=== PATIENT | male | born 1955 | race Hispanic/Latino ===

== ENCOUNTER 2019-09-21 11:46 | Emergency (ER) | payer OTHER, BC ==
--- OUTSIDE RECORDS SUMMARY | 2019-09-21 11:47 | XMS REPORT ---
:1955 Author Organization eClinicalWorks Care Team Providers Name Role Phone Gary Bone Provider Role Unavailable Allergies, Adverse Reactions, Alerts Substance Reaction Event Type N.K.D.A. Info Not Available Non Drug Allergy Problems Problem Type Condition Code Onset Dates Condition Status Assessment Pain, joint, knee, right M25.561 Active Assessment Patellar tendinitis of right knee M76.51 Active Assessment Iliotibial band syndrome of right M76.31 Active side Medications Medication Code Code Instructions Start End Status Dosage System Date Date Omeprazole [facility] 59660072617 20 MG Oral Active TAKE 1 CAPSULE BY MOUTH DAILY Losartan [facility] 85800470312 50-12.5 MG Oral Active TAKE 1 Potassium-HCTZ TABLET BY MOUTH EVERY DAY - [facility] 99740767963 81 MG Orally Active 1 tablet Once a day Simvastatin [facility] 02725608475 20 MG Orally Oct 30, Active 1 tablet Once a day 2018 in the evening Clopidogrel [facility] 57081501734 75 MG Orally Oct 30, Active 1 tablet Bisulfate Once a day 2018 Results No Known Results Summary Purpose eClinicalWorks Submission
[2019-09-21] MEDS ORDERED: AMLODIPINE 5 MG TAB ONE (12:24)
--- NOTE | 2019-09-21 13:23 | EDPHYS ---
Physician Documentation [facility] Name: Carlos Johnson Age: 64 yrs Sex: Male : 1955 Arrival Date: 09/21/2019 Time: 11:52 Bed 25 Private MD: ED Physician Krzysztof Larson HPI: 09/21 13:16 This 64 yrs old Male presents to ER via Ambulatory with complaints of High kb Blood Pressure. 13:16 The patient has elevated blood pressure and discovered this at home, with a home kb device. Onset: The symptoms/episode began/occurred 1 month(s) ago. Associated signs and symptoms: The patient has no apparent associated signs or symptoms. Severity of symptoms: At its worst the blood pressure was moderate, 200 mm Hg, in the emergency department the blood pressure is improved. The patient has experienced similar episodes in the past. The patient has been recently seen by a physician: the patient's primary care provider, Dr. Fields yesterday, with similar presenting complaints. Pt reports his blood pressure has been high for about a month. Was seen by PCP yesterday and they switched his medication to amlodipine 2.5mg. States is still running high so he called Dr Levy who told him to take 3 more pills total 10mg and to start taking 10mg daily. Pt and spouse concerned that that is too much medications so he only took 1 more and came to make sure that 10mg was ok. Pt denies headache, chest pain or any other symptoms. . Historical: - Allergies: 12:07 No Known Drug Allergies; hb - Home Meds: 12:07 amlodipine 2.5 mg tab 1 tab once daily [Active]; hb - PMHx: 12:07 Hypertension; hb - PSHx: 12:07 Heart stents; hb - Immunization history:: Adult Immunizations up to date. - Social history:: Smoking status: Patient/guardian denies using tobacco. - Ebola Screening: : No symptoms or risks identified at this time. ROS: 13:15 Constitutional: Negative for fever, chills, and weight loss, Eyes: Negative for injury, kb pain, redness, and discharge, ENT: Negative for injury, pain, and discharge, Neck: Negative for injury, pain, and swelling, Cardiovascular: Negative for chest pain, palpitations, and edema, Respiratory: Negative for shortness of breath, cough, wheezing, and pleuritic chest pain, Abdomen/GI: Negative for abdominal pain, nausea, vomiting, diarrhea, and constipation, Back: Negative for injury and pain, MS/Extremity: Negative for injury and deformity, Skin: Negative for injury, rash, and discoloration, Neuro: Negative for headache, weakness, numbness, tingling, and seizure. Exam: 13:15 Constitutional: This is a well developed, well nourished patient who is awake, alert, kb and in no acute distress. Head/Face: Normocephalic, atraumatic. Eyes: Pupils equal round and reactive to light, extra-ocular motions intact. Lids and lashes normal. Conjunctiva and sclera are non-icteric and not injected. Cornea within normal limits. Periorbital areas with no swelling, redness, or edema. ENT: Nares patent. No nasal discharge, no septal abnormalities noted. Tympanic membranes are normal and external auditory canals are clear. Oropharynx with no redness, swelling, or masses, exudates, or evidence of obstruction, uvula midline. Mucous membranes moist. Neck: Trachea midline, no thyromegaly or masses palpated, and no cervical lymphadenopathy. Supple, full range of motion without nuchal rigidity, or vertebral point tenderness. No Meningismus. Chest/axilla: Normal chest wall appearance and motion. Nontender with no deformity. No lesions are appreciated. Cardiovascular: Regular rate and rhythm with a normal S1 and S2. No gallops, murmurs, or rubs. Normal PMI, no JVD. No pulse deficits. Respiratory: Lungs have equal breath sounds bilaterally, clear to auscultation and percussion. No rales, rhonchi or wheezes noted. No increased work of breathing, no retractions or nasal flaring. Abdomen/GI: Soft, non-tender, with normal bowel sounds. No distension or tympany. No guarding or rebound. No evidence of tenderness throughout. Back: No spinal tenderness. No costovertebral tenderness. Full range of motion. Skin: Warm, dry with normal turgor. Normal color with no rashes, no lesions, and no evidence of cellulitis. MS/ Extremity: Pulses equal, no cyanosis. Neurovascular intact. Full, normal range of motion. Neuro: Awake and alert, GCS 15, oriented to person, place, time, and situation. Cranial nerves II-XII grossly intact. Motor strength 5/5 in all extremities. Sensory grossly intact. Cerebellar exam normal. Normal gait. Vital Signs: 12:07 BP 189 / 90; Pulse 76; Resp 16; Temp 98.2; Pulse Ox 100% on R/A; Weight 81.65 kg; hb Height 5 ft. 6 in. (167.64 cm); Pain 0/10; 12:33 BP 150 / 92; Pulse 70; Resp 18; Pulse Ox 95% on R/A; Pain 0/10; mg2 12:43 BP 140 / 85; mg2 13:36 BP 166 / 95; Pulse 71; Resp 18; Temp 98.1(O); Pulse Ox 100% on R/A; mg2 12:07 Body Mass Index 29.05 (81.65 kg, 167.64 cm) hb MDM: 12:11 Patient medically screened. kb 13:14 Data reviewed: vital signs, nurses notes. Data interpreted: Pulse oximetry: on room air kb is 95 %. Interpretation: normal. Counseling: I had a detailed discussion with the patient and/or guardian regarding: the historical points, exam findings, and any diagnostic results supporting the discharge/admit diagnosis, lab results, the need for outpatient follow up, a capital markets specialist, a family practitioner, to return to the emergency department if symptoms worsen or persist or if there are any questions or concerns that arise at home. ED course: Reviewed labs that were completed yesterday, all wnl. EKG normal. Pt asymptomatic. BP decreased. Will send home to continue to log BP readings and follow up with Ruthie. 09/21 12:18 Order name: EKG; Complete Time: 12:19 kb 09/21 12:18 Order name: EKG - Nurse/Tech; Complete Time: 12:43 kb Administered Medications: 12:31 Drug: amLODIPine 5 mg Route: PO; mg2 13:36 Follow up: Response: No adverse reaction; Blood pressure is lowered mg2 Disposition: 09/22 07:15 Co-signature as Attending Physician, Krzysztof Larson MD I agree with the assessment and kdr plan of care. Chart complete. Disposition: 09/21/19 13:22 Discharged to Home. Impression: Essential (primary) hypertension. - Condition is Stable. - Discharge Instructions: Hypertension, [id number]. - Medication Reconciliation Form, Thank You Letter, Antibiotic Education, Prescription Opioid Use form. - Follow up: Emergency Department; When: As needed; Reason: Worsening of condition. Follow up: Private Physician; When: 2 - 3 days; Reason: Recheck today's complaints, Continuance of care, Re-evaluation by your physician. Signatures: Maureen Cai, MARKETING CLERK-C MARKETING CLERK-Ckb Krzysztof Larson MD MD [facility] Trinity Aponte RN RN Wilmar Lin RN RN mg2 Corrections: (The following items were deleted from the chart) 09/21 13:37 13:22 09/21/2019 13:22 Discharged to Home. Impression: Essential (primary) mg2 hypertension. Condition is Stable. Forms are Medication Reconciliation Form, Thank You Letter, Antibiotic Education, Prescription Opioid Use. Follow up: Emergency Department; When: As needed; Reason: Worsening of condition. Follow up: Private Physician; When: 2 - 3 days; Reason: Recheck today's complaints, Continuance of care, Re-evaluation by your physician. kb
--- NOTE | 2019-09-21 13:23 | EKG ---
Test Date: 2019-09-21 Test Time: 12:40:21 Car Repairman: MEASUREMENT RESULTS: Intervals: Rate: 62 IA: 166 QRSD: 82 QT: 400 QTc: 406 [place]: P: 30 IA: 166 QRS: 62 T: 24 INTERPRETIVE STATEMENTS: Normal sinus rhythm Normal ECG Compared to ECG 10/21/2014 23:39:38 Sinus arrhythmia no longer present Myocardial infarct finding no longer present Electronically Signed On 09-21-19 13:22:49 SPECIAL COLLECTIONS LIBRARIAN by Keanu Levy
--- NOTE | 2019-09-21 13:23 | ER ---
Nurse's Notes [facility] Name: Carlos Johnson Age: 64 yrs Sex: Male : 1955 Arrival Date: 09/21/2019 Time: 11:52 Bed 25 Private MD: Diagnosis: Essential (primary) hypertension Presentation: 09/21 12:05 Presenting complaint: Patient states: "My blood pressure was 200 yesterday, Dr. Fields hb told me to come to the ER". Denies pain/cough/SOB/fever. Transition of care: patient was not received from another setting of care. Onset of symptoms was September 21, 2019. Risk Assessment: Do you want to hurt yourself or someone else? Patient reports no desire to harm self or others. Initial Sepsis Screen: Does the patient meet any 2 criteria? No. Patient's initial sepsis screen is negative. Does the patient have a suspected source of infection? No. Patient's initial sepsis screen is negative. Care prior to arrival: None. 12:05 Method Of Arrival: Ambulatory hb 12:05 Acuity: MICHELLE 3 hb Historical: - Allergies: 12:07 No Known Drug Allergies; hb - Home Meds: 12:07 amlodipine 2.5 mg tab 1 tab once daily [Active]; hb - PMHx: 12:07 Hypertension; hb - PSHx: 12:07 Heart stents; hb - Immunization history:: Adult Immunizations up to date. - Social history:: Smoking status: Patient/guardian denies using tobacco. - Ebola Screening: : No symptoms or risks identified at this time. Screenin:32 Abuse screen: Denies threats or abuse. Denies injuries from another. Nutritional mg2 screening: No deficits noted. Tuberculosis screening: No symptoms or risk factors identified. Fall Risk None identified. Assessment: 12:31 General: Appears in no apparent distress. comfortable, Behavior is calm, cooperative. mg2 Pain: Denies pain. Neuro: Level of Consciousness is awake, alert, obeys commands, Oriented to person, place, time, situation. Neuro:. Cardiovascular: Capillary refill < 3 seconds Patient's skin is warm and dry. Respiratory: Airway is patent Respiratory effort is even, unlabored, Respiratory pattern is regular, symmetrical. GI: No signs and/or symptoms were reported involving the gastrointestinal system. : No signs and/or symptoms were reported regarding the genitourinary system. EENT: No signs and/or symptoms were reported regarding the EENT system. Derm: Skin is intact, is healthy with good turgor, Skin is pink, warm \\T\\ dry. normal. Musculoskeletal: Circulation, motion, and sensation intact. Capillary refill < 3 seconds. 13:36 Reassessment: Patient appears in no apparent distress at this time. mg2 Vital Signs: 12:07 BP 189 / 90; Pulse 76; Resp 16; Temp 98.2; Pulse Ox 100% on R/A; Weight 81.65 kg; hb Height 5 ft. 6 in. (167.64 cm); Pain 0/10; 12:33 BP 150 / 92; Pulse 70; Resp 18; Pulse Ox 95% on R/A; Pain 0/10; mg2 12:43 BP 140 / 85; mg2 13:36 BP 166 / 95; Pulse 71; Resp 18; Temp 98.1(O); Pulse Ox 100% on R/A; mg2 12:07 Body Mass Index 29.05 (81.65 kg, 167.64 cm) hb ED Course: 11:52 Patient arrived in ED. mr 12:06 Triage completed. hb 12:07 Arm band placed on. hb 12:10 Wilmar Lin, VIRGILIO is Primary Nurse. mg2 12:10 Maureen Cai FNP-C [facility]. kb 12:10 Krzysztof Larson MD is Attending Physician. kb 12:32 No provider procedures requiring assistance completed. Patient did not have IV access mg2 during this emergency room visit. 12:33 Patient has correct armband on for positive identification. Pulse ox on. NIBP on. Door mg2 closed. 12:44 EKG done, by ED staff, reviewed by Maureen PALACIOS. at1 Administered Medications: 12:31 Drug: amLODIPine 5 mg Route: PO; mg2 13:36 Follow up: Response: No adverse reaction; Blood pressure is lowered mg2 Outcome: 13:22 Discharge ordered by . kb 13:37 Discharged to home ambulatory, with family. mg2 13:37 Condition: stable 13:37 Discharge instructions given to patient, family, Instructed on discharge instructions, follow up and referral plans. Demonstrated understanding of instructions, follow-up care. 13:37 Patient left the ED. mg2 Signatures: Maureen Cai FNP-C CREATIVE TECHNOLOGIST-Ckb Brenna Stafford mr Brian, Kait, platform worker EKG Tat1 Trinity Aponte, RN RN hb Wilmar Lin, RN RN mg2
[2019-09-21 13:46] VITALS: BP 166/95; TEMP 98.1; O2SAT 100
== END 2019-09-21 13:37 | disposition home or self-care (01) ==
LOC: ER 11:46
DX: I10 Essential (primary) hypertension (principal); Z95.818 Presence of other cardiac implants and grafts
CPT/HCPCS: 93005; 99284

== ENCOUNTER 2023-06-07 13:59 | Emergency (ER) | payer OTHER, BC ==
--- OUTSIDE RECORDS SUMMARY | 2023-06-07 15:00 | XMS REPORT | Continuity of Care Document ---
:1955 Author Organization [facility] t Address [address] [facility] [address] [place] [address] Care Team Providers Name Role Phone Lashaun Bardales MD Primary Care Physician [phone] RONALD ECHAVARRIA Attending Clinician Unavailable LILIA SHINE Attending Clinician Unavailable LAB90 Attending Clinician Unavailable MEGGAN GRAY Attending Clinician Unavailable LASHAUN BARDALES Attending Clinician Unavailable Suzette Contreras NP Attending Clinician GAYATHRI SAINI Attending Clinician Unavailable Kevyn Henderson MD Attending Clinician Lilia Shine DO Attending Clinician Serge Fields Admitting Clinician Unavailable Payers Payer Name Policy Type Policy Number Effective Date Expiration Date S tay AETNA 2 [id number] 2018 00:00:00 BCBS 2 [id number] 2021 00:00:00 AETNA 53 [id number] 2012 [facility] 00:00:00 [facility] Blue Cross 6 [id number] 2021 [facility] Blue Shield of 00:00:00 [facility] Problems Condition Condition Condition Status Onset Resolution Last Treating Co mments Source Name Details Category Date Date Treatment Clinician Date Hypertensi Hypertensi Disease Active K radha on on 04-22 Seybold 00:00: - 00 Externa l Hyperlipid Hyperlipid Disease Active K radha emia emia 04-22 Seybold 00:00: - 00 Externa l Gastroesop Gastroesop Disease Active K radha hageal hageal 04-22 Seybold reflux reflux 00:00: - disease disease 00 Externa l Peripheral Peripheral Disease Active K radha vascular vascular 04-22 Seybol d disease disease 00:00: - 00 Externa l Cough due Cough due Disease Active Jacek sey to CARLIN to CARLIN 04-22 Seybold inhibitor inhibitor 00:00: - 00 Externa l Acute pain Acute pain Disease Active K elsey of left of left 3-04 Seybold shoulder shoulder 00:00: - 00 Externa l Essential Essential Disease Active Met hodi hypertensi hypertensi 5-10 st on on 00:00: Hospita 00 l Agatston Agatston Disease Active Metho di CAC score CAC score 02-01 st 100-199 100-199 00:00: Hospita 00 l Patellar Patellar Disease Active Metho di tendinitis tendinitis 05-07 st of right of right 00:00: Hospit a knee knee 00 l Pain in Pain in Disease Active Methodi right knee right knee 05-07 st 00:00: Hospita 00 l Iliotibial Iliotibial Disease Active M ethodi band band 05-07 st syndrome syndrome 00:00: Hospit a of right of right 00 l side side Dyslipidem Dyslipidem Disease Active M ethodi ia ia 02-05 st 00:00: Hospita 00 l CAD CAD Disease Active Methodi (coronary (coronary 02-05 st artery artery 00:00: Hospita disease) disease) 00 l [id number] Kidney Problem Active Common stones [facility] [id number] Left flank Problem Active Co mmon pain [facility] [id number] Prostate Problem Active Commo n irregulari Spirit ty [facility] [id number] History of Problem Active Co mmon nephrolith Spirit iasis [facility] [id number] BPH loc w Problem Active Com mon urin Spirit obs/LUTS [facility] Carotid Carotid Disease Active Methodi artery artery st occlusion occlusion Hosp elina l Allergies, Adverse Reactions, Alerts This patient has no known allergies or adverse reactions. Family History Family Member Diagnosis Comments Start Date Stop Date Source Natural mother Asthma Natural sister Anuerysm Natural son Asthma [facility] Natural brother Heart disease [facility] Natural father Old age Social History Social Habit Start Date Stop Date Quantity Comments Source History of Tobacco [facility] - [facility] Gender identity Sexual orientation [facility] Alcohol intake 2022-09-01 2022-09-01 Lifetime [facility] 00:00:00 00:00:00 non-drinker Hospital (finding) History of Social 2022-09-01 2022-09-[address] function 00:00:00 00:00:00 Hospital Education 2021-12-13 2021-12-13 12 Jenise Lewold - 00:00:00 00:00:00 External Tobacco use and 2019-10-17 2019-10-17 Smokeless [facility] exposure 00:00:00 00:00:00 tobacco non-user Hospital Sex Ass[birth year] [facility] 00:00:00 00:00:00 Hospital Smoking Status Start Date Stop Date Source Never smoked tobacco Jenise Lew old - External Ex-smoker 2019-10-17 00:00:00 2019-10-17 00:00:00 [facility] Medications Ordered Filled Start Stop Current Ordering Indication Dosage Frequency Signature Comments Components Source Medication Medication Date Date Medication? Clinician (SIG) Name Name hydroCHLORO Yes TAKE 1 Meth harsh thiazide 6-[address] (MICROZIDE) 00:00: MOUTH Hospi ta 12.5 mg 00 EVERY DAY l capsule atorvastati Yes TAKE 1 Meth harsh n (LIPITOR) 5-[address] 40 mg 00:00: MOUTH Hospita tablet 00 EVERY DAY l amLODIPine Yes TAKE 1 Metho di (NORVASC) 5-[address] 10 mg 00:00: MOUTH Hospita tablet 00 EVERY DAY l Aspirin 81 0 Yes Take by Nina ey MG oral 4-13 mouth Seybold Tablet 14:58: - Delayed 46 Externa Response l Cholecalcif Yes Take by Jacek sey leisa 4-13 mouth Seybold (Vitamin 14:58: daily - D3) 1.25 MG 46 Externa (25280 UT) l oral Capsule Amlodipine 0 Yes 10mg Take 1 Kelse y Besylate 10 4-13 tablet (10 Se ybold MG oral 14:58: mg total) - Tablet 46 by mouth Externa daily l Coenzyme Yes Take by Jenise Q10 (Co 4-13 mouth Seybold Q-10) 100 14:58: - MG oral 46 Externa Capsule l Pantoprazol Yes 40mg Take 1 Nina ey e Sodium 40 4-13 tablet (40 Se ybold MG oral 14:58: mg total) - Tablet 46 by mouth Externa Delayed daily l Response Losartan Yes [id number] TAKE 1 Jacek sey Potassium 4-13 TABLET BY Seybo ld (COZAAR) 00:00: MOUTH - 100 MG oral 00 EVERY DAY Ext dayana Tablet l predniSONE 0 Yes [id number] 10mg Take 1 K elsey (DELTASONE) 4-13 tablet (10 Se ybold 10 MG oral 00:00: mg total) - tablet 00 by mouth Externa daily l Benzonatate 2022-0 Yes [id number] 100mg Q.[id number] Take 1 Jenise (Tessalon 4-13 [id number] capsule S constantino Mcdaniel) 100 00:00: 3D (100 mg - MG oral 00 total) by Externa Capsule mouth 3 l times daily as needed for cough Azithromyci 0 2022- No [id number] Take 2 Jenise n 250 MG 4-13 -19 tablets by Seyb old oral Tablet 00:00: 04:59 mouth on - 00 :00 day 1 then Externa 1 tablet l by mouth daily for 4 days thereafter . Benzonatate 0 2022- No [id number] 100mg Q.[id number] Take 1 Jenise (Tessalon 3-01 -13 [id number] capsule Seybold Violeta) 100 00:00: 00:00 3D (100 mg - MG oral 00 :00 total) by Externa Capsule mouth 3 l times daily as needed for cough Aspirin 81 2022-0 Yes Take by Nina ey MG oral 2-13 mouth Seybold Tablet 08:12: - Delayed 28 Externa Response l Cholecalcif 2022-0 Yes Take by Jacek francis leisa 2-13 mouth Seybold (Vitamin 08:12: daily - D3) 1.25 MG 28 Externa (17683 UT) l oral Capsule Amlodipine 2022-0 Yes 10mg Take 10 mg K elsey Besylate 10 2-13 by mouth Seyb old MG oral 08:12: daily - Tablet 28 Externa l Coenzyme 2022-0 Yes Take by Jenise Q10 (Co 2-13 mouth Seybold Q-10) 100 08:12: - MG oral 28 Externa Capsule l Pantoprazol 2022-0 Yes 40mg Take 40 mg Jenise wick Sodium 40 2-13 by mouth Seyb old MG oral 08:12: daily - Tablet 28 Externa Delayed l Response methylPREDN 2022-0 Yes [id number] 1{roderick} Take 1 roderick Quilesone 4 - by mouth Seybol d MG oral 00:00: See Admin - Tablet 00 Instructio Externa Therapy ns Use as l Pack directed methylPREDN 3-0 2022- No [id number] 1{roderick} Take 1 roderick Quilesone 4 11-24- by mouth Seybo ld MG oral 00:00: 00:00 See Admin - Tablet 00 :00 Instructio Externa Therapy ns Use as l Pack directed Triamcinolo 2022-0 2022- No [id number] Apply to Jenise ia 11-24-13 area twice Seybold Acetonide 00:00: 00:00 daily for - 0.1 % apply 00 :00 10 days. Exte rna externally l Cream Triamcinolo 2022-0 2022- No [id number] Apply to Jenise ia -22 12-14 area twice Seybold Acetonide 00:00: 04:59 daily for - 0.1 % apply 00 :00 10 days. Exte rna externally l Cream spironolact 2021-10- No 25mg QD Take 1 Met hodi one -02 10-23 tablet (25 st (ALDACTONE) 00:00: 05:59 mg total) Hospita 25 MG 00 :00 by mouth l tablet daily. aspirin 2021-10 Yes 81mg QD Take 81 mg Meth harsh (ECOTRIN) [address] 81 MG 10:15: daily. Hospita enteric 07 l coated tablet cholecalcif 2021-10 Yes QD Take by Met hodi leisa, -[address] vitamin D3, 10:15: daily. Hosp elina (VITAMIN D3 07 l ORAL) coenzyme 2021-10 Yes Take by Method i Q10 100 mg -[address] capsule 10:15: Hospita 07 l Losartan 2021-10 Yes [id number] 100mg Take 1 Ke lsey Potassium 0-19 tablet Seybold 100 MG oral 00:00: (100 mg - Tablet 00 total) by Externa mouth l daily losartan 2021-10 Yes 100mg QD Take 1 Method i (COZAAR) 0-[address] 100 MG 00:00: (100 mg Hospita tablet 00 total) by l mouth daily. Flomax 0.4 Flomax 0.4 2022- No 1{capsu QD Flomax 0.4 MG MG 630 11-05 le} MG 00:00: 00:00 00 :00 Sutab 2022- No See Admin Jenise [phone] 5-31 02-13 Instructio S eybold 8 MG oral 00:00: 00:00 ns PLEASE - Tablet 00 :00 SEE Externa ATTACHED l FOR DETAILED DIRECTIONS Atorvastati Yes 40mg Take 40 mg Jenise n Calcium 5-26 by mouth Seybol d 40 MG oral 00:00: daily - Tablet 00 Externa l Atorvastati Yes 40mg Take 1 Nina gamboa n Calcium 5-26 tablet (40 Seyb old 40 MG oral 00:00: mg total) - Tablet 00 by mouth Externa daily l hydroCHLORO 2022- No 12.5mg QD Take 1 M ethodi thiazide 5-25 06-[address] (MICROZIDE) 00:00: 00:00 (12.5 mg H ospita 12.5 mg 00 :00 total) by l capsule mouth daily. amLODIPine 2022- No 10mg QD Take 1 Meth harsh (NORVASC) 25 05-24 tablet (10 st 10 mg 00:00: 00:00 mg total) Hospit a tablet 00 :00 by mouth l daily. lisinopriL 2021- No 40mg QD Take 1 Meth harsh (PRINIVIL) 03-05-21 tablet (40 st 40 mg 00:00: 00:00 mg total) Hospit a tablet 00 :00 by mouth l daily. atorvastati 2022- No TAKE 1 Met hodi n (LIPITOR) 03-04 05-[address] 40 mg 00:00: 00:00 MOUTH Hospita tablet 00 :00 EVERY DAY l hydroCHLORO 2021-0 Yes 12.5mg Take 1 Ke lsey thiazide 5-02 capsule Seybold 12.5 MG 00:00: (12.5 mg - oral 00 total) by Externa Capsule mouth l daily hydroCHLORO 2021-0 Yes 12.5mg Take 1 Ke lsey thiazide 5-02 capsule Seybold 12.5 MG 00:00: (12.5 mg - oral 00 total) by Externa Capsule mouth l daily Bupivicaine Bupivicaine 0 No [facility] [place] [facility]17 [facility] 00:00: - [facility] Kenalog Kenalog 0 No 40mg Common (Triamcinol (Triamcinol 3-17 S pirit one) one) 00:00: - [facility] Bupivicaine Bupivicaine 2021-0 No 2.5mg Common [place] 3[facility]17 Spirit 00:00: - CHI 00 [facility] Kenalog Kenalog 2021-0 No 40mg Common (Triamcinol (Triamcinol 3-17 S pirit one) one) 00:00: - [facility] Bupivicaine Bupivicaine 2021-0 No 2.5mg Common [place] 3-17 Spirit 00:00: - [facility] Kenalog Kenalog 0 No 40mg Common (Triamcinol (Triamcinol 3-17 S pirit one) one) 00:00: - CHI 00 [facility] Aspirin Yes Take by Jenise (Aspir-Low) 3-04 mouth Seybold 81 MG oral 09:40: Tablet 19 Delayed Response Cholecalcif Yes Take by Jacek archery leisa 3-04 mouth Seybold (Vitamin 09:40: daily D3) 1.25 MG 19 (15647 UT) oral Capsule Amlodipine 0 Yes 10mg Take 10 mg K elsey Besylate 10 3-04 by mouth Seyb old MG oral 09:40: daily Tablet 19 Pantoprazol Yes Inject Nina gamboa e Sodium 40 - into the Seyb old MG 09:40: vein intravenous 19 Recon Soln Coenzyme Yes Take by Jenise Q10 (Co 3-04 mouth Seybold Q-10) 100 09:40: MG oral 19 Capsule Ubiquinol 2021- No Take by Nina gamboa Liposomal 3-04 03-04 mouth Seybold 100 MG/5ML 09:39: 00:00 oral Syrup 57 :00 Lisinopril 0 3- No [id number] 40mg Take 1 Jenise 40 MG oral 3-04 03-05 tablet (40 Se ybold Tablet 00:00: 05:59 mg total) 00 :00 by mouth daily Celecoxib 2020-10- No [id number] 200mg Take 1 Jenise (CeleBREX) 0-13 03-04 9107 capsule Seybo ld 200 MG oral 00:00: 00:00 (200 mg Capsule 00 :00 total) by mouth 2 times daily Cetirizine 0 2021- No [id number] 10mg Take 1 Jenise 10 MG oral 6- 03-04 tablet (10 Se ybold Tablet 00:00: 00:00 mg total) 00 :00 by mouth daily hydroCHLORO 0 Yes TAKE 1 Nina gamboa thiazide 4-25 CAPSULE BY Seybo ld 12.5 MG 00:00: MOUTH oral 00 EVERY DAY Capsule Atorvastati 2020-0 2- No 40mg Take 40 mg Jenise n Calcium 4-23 04-24 by mouth Seybo ld 40 MG oral 00:00: 04:59 daily Tablet 00 :00 Lisinopril 2020-0 2022- No 40mg Take 40 mg Jenise 40 MG oral 3-18 03-04 by mouth Seyb old Tablet 00:00: 00:00 daily 00 :00 pantoprazol 2019-0 Yes 40mg QD Take 40 mg Methodi e 1-[address] (PROTONIX) 00:00: daily. PRN H ospita 40 MG EC 00 l tablet Simvastatin Simvastatin 2017-10 Yes Gary 1 tablet Common 0-30 Bone in the Spirit 00:00: evening - CHI 00 [facility] Clopidogrel Clopidogrel 2017-10 Yes Gary 1 tablet Common Bisulfate Bisulfate 0-30 Bone Spiri t 00:00: - CHI 00 [facility] Clopidogrel Clopidogrel 2017-10 No 1{table QD Clopidogre Bisulfate Bisulfate 0-30 t} l 75 MG 75 MG 00:00: Bisulfate 00 75 MG Simvastatin Simvastatin 2017-10 No 1{table QD Simvastati 20 MG 20 MG 0-30 t_in_th n 20 MG 00:00: e_eveni 00 ng} Clopidogrel Clopidogrel 2017-10 No 1{table QD Clopidogre Bisulfate Bisulfate 0-30 t} l 75 MG 75 MG 00:00: Bisulfate 00 75 MG Simvastatin Simvastatin 2017-10 No 1{table QD Simvastati 20 MG 20 MG 0-30 t_in_th n 20 MG 00:00: e_eveni 00 ng} Simvastatin Simvastatin 2017-10 No 1{table QD Simvastati 20 MG 20 MG 0-30 t_in_th n 20 MG 00:00: e_eveni 00 ng} Clopidogrel Clopidogrel 2017-10 No 1{table QD Clopidogre Bisulfate Bisulfate 0-30 t} l 75 MG 75 MG 00:00: Bisulfate 00 75 MG Omeprazole Omeprazole Yes Gary TAKE 1 Common Bone CAPSULE BY Spirit MOUTH - CHI DAILY [facility] Losartan Losartan Yes Gary TAKE 1 Co mmon Potassium-H Potassium-H Bone TABLET BY Spirit CTZ CTZ MOUTH - CHI EVERY DAY [facility] -81 Aspir-81 Yes Gary 1 tablet Common [facility] - [facility] Losartan Losartan No Losartan Potassium-H Potassium-H Potassium- CTZ 50-12.5 CTZ 50-12.5 HCTZ MG MG 50-12.5 MG Lisinopril Lisinopril No Lisinopril Pantoprazol Pantoprazol No Pantoprazo e Sodium e Sodium le Sodium amLODIPine amLODIPine No amLODIPine Besylate Besylate Besylate Vitamin D3 Vitamin D3 No Vitamin D3 HCTZ HCTZ No HCTZ CoQ-10 CoQ-10 No CoQ-10 Aspir-81 81 Aspir-81 81 No 1{table QD Aspir-81 MG MG t} 81 MG Omeprazole Omeprazole No Omeprazole 20 MG 20 MG 20 MG atorvastati atorvastati No atorvastat n n in Omeprazole Omeprazole No Omeprazole 20 MG 20 MG 20 MG Losartan Losartan No Losartan Potassium-H Potassium-H Potassium- CTZ 50-12.5 CTZ 50-12.5 HCTZ MG MG 50-12.5 MG Lisinopril Lisinopril No 1{table QD Lisinopril 40 MG 40 MG t} 40 MG Pantoprazol Pantoprazol No 1{table QD Pantoprazo e Sodium 40 e Sodium 40 t} le Sodium MG MG 40 MG CoQ-10 100 CoQ-10 100 No CoQ-10 100 MG MG MG Vitamin D3 Vitamin D3 No 1{table QD Vitamin D3 250 MCG 250 MCG t} 250 MCG (16658 UT) (68368 UT) (82514 UT) Atorvastati Atorvastati No 1{table QD Atorvastat n Calcium n Calcium t} in Calcium 40 MG 40 MG 40 MG Aspir-81 81 -81 81 No 1{table QD Aspir-81 MG MG t} 81 MG HCTZ HCTZ No 1{table QD HCTZ 37.5-25 MG 37.5-25 MG t_in_th 37.5-25 MG e_morni ng} amLODIPine amLODIPine No 1{table QD amLODIPine Besylate 10 Besylate 10 t} Besylate MG MG 10 MG Losartan Losartan No Losartan Potassium-H Potassium-H Potassium- CTZ 50-12.5 CTZ 50-12.5 HCTZ MG MG 50-12.5 MG Pantoprazol Pantoprazol No 1{table QD Pantoprazo e Sodium 40 e Sodium 40 t} le Sodium MG MG 40 MG HCTZ HCTZ No 1{table QD HCTZ 37.5-25 MG 37.5-25 MG t_in_th 37.5-25 MG e_morni ng} Lisinopril Lisinopril No 1{table QD Lisinopril 40 MG 40 MG t} 40 MG amLODIPine amLODIPine No 1{table QD amLODIPine Besylate 10 Besylate 10 t} Besylate MG MG 10 MG Atorvastati Atorvastati No 1{table QD Atorvastat n Calcium n Calcium t} in Calcium 40 MG 40 MG 40 MG Vitamin D3 Vitamin D3 No 1{table QD Vitamin D3 250 MCG 250 MCG t} 250 MCG (64834 UT) (78171 UT) (26426 UT) Omeprazole Omeprazole No Omeprazole 20 MG 20 MG 20 MG CoQ-10 100 CoQ-10 100 No CoQ-10 100 MG MG MG Aspir-81 81 Aspir-81 81 No 1{table QD Aspir-81 MG MG t} 81 MG Immunizations Ordered Immunization Filled Immunization Date Status Commen ts Source Name Name Tdap- (Boostrix, 2018-12-10 Completed Jenise meeks Adacel) 00:00:00 - External Tdap- (Boostrix, 2018-12-10 Completed Jenise gamboabojennifer Adacel) 00:00:00 Tdap- (Boostrix, 2018-12-10 Completed Jenise Kidd eybold Adacel) 00:00:00 - External Shingles SQ 2016-08-21 Completed Jenise Seybol d (Zostavax) 00:00:00 - External Shingles SQ 2016-08-21 Completed Jenise Seybol d (Zostavax) 00:00:00 Shingles SQ 2016-08-21 Completed Jenise Seybol d (Zostavax) 00:00:00 - External Tdap- (Boostrix, 2014-08-15 Completed Jenise gamboald Adacel) 00:00:00 - External Tdap- (Boostrix, 2014-08-15 Completed Jenise gamboabold Adacel) 00:00:00 Tdap- (Boostrix, 2014-08-15 Completed Jenise gamboabold Adacel) 00:00:00 - External Tdap- (Boostrix, 2013-05-04 Completed Jenise gamboabojennifer Adacel) 00:00:00 - External Tdap- (Boostrix, 2013-05-04 Completed Jenise gamboabold Adacel) 00:00:00 Tdap- (Boostrix, 2013-05-04 Completed Jenise gamboabold Adacel) 00:00:00 - External Vital Signs Vital Name Observation Time Observation Value Comments Source Systolic blood 2023-01-22 19:56:00 120 mm[Hg] Jenise Seybold - pressure External Diastolic blood 2023-01-22 19:56:00 67 mm[Hg] Jacekse y Seybold - pressure External Heart rate 2023-01-22 19:56:00 88 /min Jenise Kidd eybold - External Body temperature 2023-01-22 19:56:00 37.39 Saida Nina ey Seybold - External Respiratory rate 2023-01-22 19:56:00 14 /min Nina gamboa Seybold - External Body height 2023-01-22 19:56:00 167.6 cm Jenise Kidd eybold - External Body weight 2023-01-22 19:56:00 94.348 kg Jenise Kidd eybold - External BMI 2023-01-22 19:56:00 33.57 kg/m2 Jenise Kidd eybold - External Oxygen saturation in 2023-01-22 19:56:00 96 /min Jenise Alcazar - Arterial blood by External Pulse oximetry Systolic blood 2022-11-24 14:06:00 116 mm[Hg] Jenise Seybold - pressure External Diastolic blood 2022-11-24 14:06:00 62 mm[Hg] Jose Luis olivier Seybold - pressure External Heart rate 2022-11-24 14:06:00 74 /min Jenise Kidd eybold - External Body temperature 2022-11-24 14:06:00 36.67 Saida Nina gamboa Seybold - External Respiratory rate 2022-11-24 14:06:00 14 /min Nina gamboa Seybold - External Body height 2022-11-24 14:06:00 167.6 cm Jenise Kidd eybold - External Body weight 2022-11-24 14:06:00 92.08 kg Jenise Kidd eybold - External BMI 2022-11-24 14:06:00 32.77 kg/m2 Jenise Kidd eybold - External height 2022-04-10 08:45:00 66 [in_i] Common S pirit - [facility] weight 2022-04-10 08:45:00 198.6 [lb_av] [facility] - [facility] temperature 2022-04-10 08:45:00 97.1 [degF] Common S pirit [facility] bmi 2022-04-10 08:45:00 32.05 kg/m2 [facility] oximetry 2022-04-10 08:45:00 99 % Common S pirit [facility] respiratory rate 2022-04-10 08:45:00 16 /min Comm on [facility] blood pressure 2022-04-10 08:45:00 162 mm[Hg] Common [facility] - systolic [facility] blood pressure 2022-04-10 08:45:00 71 mm[Hg] Common [facility] - diastolic [facility] oximetry 2022-02-06 08:00:00 99 % [facility] respiratory rate 2022-02-06 08:00:00 16 /min Comm on [facility] blood pressure 2022-02-06 08:00:00 148 mm[Hg] [facility] - systolic [facility] blood pressure 2022-02-06 08:00:00 72 mm[Hg] [facility] - diastolic [facility] height 2022-02-06 08:00:00 66 [in_i] [facility] weight 2022-02-06 08:00:00 197 [lb_av] Common [facility] temperature 2022-02-06 08:00:00 97.3 [facility]degF] [facility] bmi 2022-02-06 08:00:00 31.79 kg/m2 [facility] height 2021-12-26 08:00:00 66 [in_i] Common S [facility] weight 2021-12-26 08:00:00 199 [lb_av] [facility] temperature 2021-12-26 08:00:00 98.4 [degF] [facility] bmi 2021-12-26 08:00:00 32.12 kg/m2 Common S pirit - [facility] blood pressure 2021-12-26 08:00:00 132 mm[Hg] [facility] - systolic [facility] blood pressure 2021-12-26 08:00:00 74 mm[Hg] [facility] - diastolic [facility] Systolic blood 2021-12-13 15:34:00 124 mm[Hg] Jenise Seybold pressure Diastolic blood 2021-12-13 15:34:00 62 mm[Hg] Kelse y Seybold pressure Heart rate 2021-12-13 15:34:00 69 /min Jenise S eybold Body temperature 2021-12-13 15:34:00 36.5 Saida Nina ey Seybold Respiratory rate 2021-12-13 15:34:00 16 /min Nina ey Seybold Body height 2021-12-13 15:34:00 167.6 cm Jenise S eybold Body weight 2021-12-13 15:34:00 88.905 kg Jenise S eybold BMI 2021-12-13 15:34:00 31.64 kg/m2 Jenise S eybold Systolic blood 2022-09-01 16:11:00 126 mm[Hg] Method [facility] pressure Diastolic blood 2022-09-01 16:11:00 77 mm[Hg] [facility] pressure Heart rate 2022-09-01 16:11:00 73 /min [facility] Body height 2022-09-01 16:11:00 160 cm [facility] Body weight 2022-09-01 16:11:00 92.171 kg [facility] BMI 2022-09-01 16:11:00 36.00 kg/m2 [facility] Oxygen saturation in 2022-09-01 16:11:00 98 /min Arterial blood by Pulse oximetry Procedures Procedure Date / Time Performed Performing Clinician Sour e TESTOSTERONE, TOTAL, 2022-09-01 16:54:00 Kevyn Henderson [facility] IMMUNOASSAY (FOR ADULT MALES) BASIC METABOLIC PANEL 2022-09-01 16:54:00 Kevyn Henderson [facility] LIPID PANEL 2022-09-01 16:54:00 Kevyn Hendersonist Ho spital HEMOGLOBIN A1C 2022-09-01 16:54:00 Kevyn Henderson spital B NATRIURETIC PEPTIDE 2022-09-01 16:54:00 Kevyn Henderson [facility] ECG 12-LEAD 2022-09-01 16:18:33 Kevyn Henderson Ho spital Plan of Care Planned Activity Planned Date Details Comments Source Future Scheduled 2023-05-14 Screening for Test 12:44:11 malignant neoplasm of colon (procedure) [code = 760378528] Future Scheduled 2023-05-14 Screening for Test 12:44:11 malignant neoplasm of colon (procedure) [code = 815423973] Future Scheduled 2023-05-14 Screening for Test 12:44:11 malignant neoplasm of colon (procedure) [code = 202785072] Future Scheduled 2023-05-14 COVID-19 VACCINE (#1) [facility] Test 12:44:11 [code = COVID-19 VACCINE (#1)] Future Scheduled 2023-05-14 65+ PNEUMOCOCCAL [facility] Test 12:44:11 VACCINE (1 - PCV) [code = 65+ PNEUMOCOCCAL VACCINE (1 - PCV)] Future Scheduled 2023-05-[address] [facility] Test 12:44:11 (procedure) [code = 196432654] Future Scheduled 2023-05-14 Screening for Test 12:44:11 malignant neoplasm of colon (procedure) [code = 243157320] Future Scheduled 2023-05-14 Screening for Test 12:44:11 malignant neoplasm of colon (procedure) [code = 468790088] Future Scheduled 2023-05-14 SHINGLES VACCINES (2 Met [facility] Test 12:44:11 of 3) [code = SHINGLES VACCINES (2 of 3)] Future Scheduled 2023-05-[address] [facility] Test 12:44:11 [code = ZZZ INFLUENZA VACCINE] Encounters Start End Encounter Admission Attending Care Care Encounter Source Date/Time Date/Time Type Type Clinicians Facility Department ID 2022-01-01 [facility] [id number] Common 08:50:02 [facility] [place] [facility] [id number] [place] 08:[place]:01 [facility] [place] [id number] [place] 09:39:01 [facility] [place]-10 2023-07-10 Outpatient JERICHOMARYLara KERNS [id number] Jenise 11:30:00 11:30:00 Seybol d 2023-05-25 2023-05-25 Outpatient JENISE SHINE [id number] Jenise 00:00:00 00:00:00 LILIA Seybol d 2023-05-20 2023-05-20 Outpatient JENISE SHINE [id number] Jenise 00:00:00 00:00:00 LIILA Seybol d 2023-05-19 2023-05-19 Outpatient LAB90 JENISE KERNS [id number] Jenise 10:35:00 10:35:00 Seybol d 2023-05-15 2023-05-15 Outpatient IDALMISZAJENISE Kidd [id number] Jenise 00:00:00 00:00:00 LILIA Seybol d 2023-05-05 2023-05-05 Outpatient JENISE SHINE [id number] Jenise 00:00:00 00:00:00 LILIA Seybol d 2023-05-01 2023-05-01 Outpatient LAB90 JENISE KERNS [id number] Jenise 09:35:00 09:35:00 Seybol d 2023-04-24 2023-04-24 Outpatient IDALMISZAJENISE Kidd [id number] Jenise 00:00:00 00:00:00 LILIA Seybol d 2023-04-23 2023-04-23 Outpatient LAB90 JENISE KERNS [id number] Jenise 11:55:00 11:55:00 Seybol d 2023-04-22 2023-04-22 Outpatient MEGGAN GRAY [id number] Jenise 11:00:00 11:00:00 Seybol d 2023-04-22 2023-04-22 Outpatient JENISE SHINE [id number] Jenise 00:00:00 00:00:00 LILIA Seybol d 2023-04-22 2023-04-22 Outpatient JENISE SHINE [id number] Jenise 00:00:00 00:00:00 LILIA Seybol d 2023-04-22 2023-04-22 Outpatient JENISE SHINE [id number] Jenise 00:00:00 00:00:00 LILIA Seybol d 2023-03-13 2023-03-13 Outpatient JENISE BARDALES [id number] Jenise 00:00:00 00:00:00 LASHAUN Seybol d 2023-03-13 2023-03-13 Telephone [place], 1.2.840.1 [id number] Methodi 00:00:00 00:00:[address] 3.430.2.7 Hospit a .3.258321 l .8 2023-03-08 2023-03-08 Refill [place], 1.2.840.1 [id number] Methodi 00:00:00 00:00:[address] 3.430.2.7 Hospit a .3.052491 l .8 2023-03-04 2023-03-04 Refill [place], 1.2.840.1 [id number] Methodi 00:00:00 00:00:[address] 3.430.2.7 Hospit a .3.716548 l .8 2023-01-22 2023-01-22 Outpatient JENISE SHINE [id number] Jenise 15:30:00 15:30:00 LILIA Seybol d 2023-01-22 2023-01-22 Outpatient JENISE SHINE [id number] Jenise 00:00:00 00:00:00 LILIA Seybol d 2022-12-18 2022-12-18 Outpatient JENISE BARDALES [id number] Jenise 00:00:00 00:00:00 LASHAUN Seybol d 2022-12-09 2022-12-09 Outpatient JINGChiara JENISE KERNS [id number] Jenise 00:00:00 00:00:00 GAYATHRI Seybol d 2022-11-24 2022-11-24 Outpatient YENY JENISE KERNS [id number] Jenise 08:00:00 08:00:00 GAYATHRI Seybol d 2022-10-02 2022-10-02 Telemedici Nyon, 1.2.840.1 [id number] Methodi 11:40:00 13:11:47 [address]64.1.[address] 3.430.2.7 Hospit a .3.700702 l .8 2022-10-02 2022-10-02 Outpatient [facility] [id number] [place] 00:00:00 00:00:[address] 2022-09-10 2022-09-10 Outpatient JENISE SHINE [id number] Jenise 00:00:00 00:00:00 LILIA Seybol d 2022-09-01 2022-09-01 Office [place], 1.2.840.1 [id number] Methodi 10:30:00 10:53:59 Visit Kevyn 31596.1.[address] 3.430.2.7 Hospit a .3.536694 l .8 2022-09-01 2022-09-01 Travel 1.2.840.1 1.2.575.512 [id number] Methodi 00:00:00 00:00:[address] 3.430.2.7 0.2.7.3.698 Ho spita .3.922293 084.8 l .8 2022-09-01 2022-09-01 Outpatient SANTIAGO, [facility] [id number] [place] 00:00:00 00:00:[address] KEVYN [address] 2022-07-30 2022-07-30 Outpatient JENISE SHINE [id number] Jenise 00:00:00 00:00:00 LILIA Seybol d 2022-05-20 2022-05-20 Outpatient JENISE SHINE [id number] Jenise 08:15:00 08:15:00 LILIA Seybol d 2022-04-22 2022-04-22 Office Meggan Shine 1.2.840.114 [id number] [place] 09:45:00 10:00:00 Visit Lilia Cai 350.1.13.13 Se suárez 1.2.7.2.686 [id number] 2022-04-18 2022-04-18 Outpatient JENISE SHINE [id number] Jenise 00:00:00 00:00:00 LILIA Seybol d 2022-04-10 2022-04-10 OFFICE STLMLC [facility] [id number] Co m[place] 00:00:00 00:00:00 VISIT EST Spir it PT LEVEL 3 - [facility] 2022-02-21 2022-02-21 Outpatient [facility] [id number] [place] 00:00:00 00:00:[address] 2022-02-07 2022-02-07 Outpatient JENISE SHINE [id number] Jenise 00:00:00 00:00:00 LILIA Seybol d 2022-02-06 2022-02-06 OFFICE STLMLC ST[facility]MLC [id number] Co mmon 00:00:00 00:00:00 VISIT NEW Spir it PT LEVEL 4 - [facility] 2021-12-26 2021-12-26 OFFICE STLMLC STLMLC [id number] Co mmon 00:00:00 00:00:00 VISIT NEW Spir it PT LEVEL 4 - [facility] 2021-12-18 2021-12-18 Outpatient JENISE BARDALES [id number] Jenise 00:00:00 00:00:00 LASHAUN Seybol d 2021-12-13 2021-12-13 Outpatient LAB90 JENISE KERNS [id number] Jenise 10:45:00 10:45:00 Seybol d 2021-12-13 2021-12-13 Office Meggan Shine 1.2.840.114 [id number] [place] 10:00:00 10:30:00 Visit Lilia Cai 350.1.13.13 Se suárez 1.2.7.2.686 [id number] 2021-07-24 2021-07-24 Outpatient YENYJENISE JENISE [id number] Jenise 13:00:00 13:00:00 GAYATHRI cui 2021-02-01 2021-02-01 Outpatient [facility] [id number] [place] 00:00:00 00:00:00 530 Method i 2020-10-02 2020-10-02 Outpatient SANTIAGO, [facility] [id number] [place] 00:00:00 00:00:00 KEVYN 735 Method i 2020-08-14 2020-08-14 Outpatient SANTIAGO, [facility] [id number] [place] 00:00:00 00:00:00 KEVYN 821 Method i 2020-05-07 2020-05-07 Outpatient [facility] [id number] [place] 00:00:00 00:00:00 KEVYN 615 Method i 2020-02-06 2020-02-07 Outpatient SANTIAGO, [facility] [id number] [place] 00:00:00 00:00:00 KEVYN 976 Method i 2018-10-11 2018-10-11 [facility] [id number] Common 09:00:00 09:00:00 [facility] Results Test Description Test Time Test Comments Results Result Comments Source Basic metabolic panel 2022-09-04 18:07:00 Test Item Value Reference Range Interpretation Comme nts Glucose (test code = 91 mg/dL 65-99 Fastin g reference 2345-7) interval BUN (test code = 19 mg/dL 7-25 3094-0) Creatinine (test code = 1.05 mg/dL 0.70-1.35 2160-0) eGFR (test code = 8257) 78 See_Comment The eGFR is based on the CKD-EPI 202 1 equation. To ca lculate the new eGFR fr om a previous Creati nine or Cystatin Cresul t, go to https://www.kid reese.org/ professionals/k doqi/gfr %5Fcalculator [Automated mess age] The system which ge nerated this result tra nsmitted reference range : > OR = 60 mL/min/1.73m 2. The reference range was not used to interpr et this result as normal/abnormal . BUN/creatinine ratio NOT APPLICABLE See_Comment [Aut omated message] (test code = 3097-3) The sys tem which generated this result transmitted ref erence range: 6 - 22 ( calc). The reference r keegan was not used to int erpret this result as normal/abnormal . Sodium (test code = 141 mmol/L 054-284 4149-2) Potassium (test code = 3.8 mmol/L 3.5-5.3 2823-3) Chloride (test code = 104 mmol/L 98-110 2074-0) CO2 (test code = 26 mmol/L 20-32 2027-9) Calcium (test code = 9.5 mg/dL 8.6-10.3 81369-6) JOSE (test code = JOSE) FASTING:YES FASTING: YES RAC (test code = RAC) Performing Organization Information: Site ID: [id number] Name: [facility] Address: [address] [place] [id number] Director: Kyler Greenberg Lipid [id number] 18:07:00 Test Item Value Reference Range Interpretation Comments Cholesterol, total 124 mg/dL See_Comment [Automat ed (test code = 2093-3) message ] The system which generated this result transmitted reference range : <=200. The reference range was not used to interpret this result as normal/abnormal . HDL cholesterol 46 mg/dL See_Comment [Automated (test code = 2085-9) message ] The system which generated this result transmitted reference range : > OR = 40. The reference range was not used to interpret this result as normal/abnormal . Triglycerides (test 99 mg/dL See_Comment [Automa philomena code = 2571-8) message] The system which generated this result transmitted reference range : <=150. The reference range was not used to interpret this result as normal/abnormal . LDL cholesterol 60 mg/dL (calc) Reference ra nge: calculated (test <100 Desira ble code = 88383-6) range <100 m g/dL for primary prevention; <70 mg/dL for patients with C HD or diabetic patients with > or = 2 CHD risk factors. LDL-C is now calculated using the Louie calculation, which is a validated novel method providin g better accuracy than the Friedewald equation in the estimation of LDL-C. Sergio Kidd S et al. REBEKA. 2013;310(19): 9595-9176 (http://educati on .Bruxie .com/faq/XEP181 ) Cholesterol/HDL 2.7 See_Comment [Automated ratio (test code = message] The 98[employer] system which generated this result transmitted reference range : <5.0 (calc). Th e reference range was not used to interpret this result as normal/abnormal . Non-HDL cholesterol 78 See_Comment For mili ents with (test code = diabetes plus 1 24069-2) major ASCVD ris k factor, treatin g to a non-HDL-C goal of <100 mg/dL (LDL-C of <70 mg/dL) is considered a therapeutic option. [Automated message] The system which generated this result transmitted reference range : <130 mg/dL (calc). The reference range was not used to interpret this result as normal/abnormal . JOSE (test code = FASTING:YES JOSE) FASTING: YES RAC (test code = Performing RAC) Organization Information: Site ID: RGA Name: [facility] Address: [address] [place] [phone] Director: Kyler Greenberg Hemoglobin [id number] 18:07:00 Test Item Value Reference Range Interpretation Comments Hemoglobin A1C 5.6 See_Comment For the purpo se of (test code = screening for t 4548-4) presence ofdiab etes: <5.7% Consisten t with the absence of diabetes5.7-6.4 % Consistent with increased risk for diabetes (prediabetes)> or =6.5% Consisten t with diabetes This a ssay result is consi stent with a decrease d riskof diabetes . Currently, no consensus exist s regarding use ofhemoglobin A1 c for diagnosis of di abetes in children. According to [place] er[place] Diabetes Associ ation (ADA)guidelines , hemoglobin A1c <7.0% represents optimalcontrol in non- di abetic patients. Differentmetric s may apply to specif ic patient populat ions. Standards of Sc dical Care in Diabetes(ADA). [Automated mess age] The system whic h generated this result transmitted ref erence range: <5.7 % o f total Hgb. The reference range was not used to int erpret this result as normal/abnormal . JOSE (test code = FASTING:YES JOSE) FASTING: YES RAC (test code = Performing RAC) Organization Information: Site ID: [facility] Name: [facility] Address: [address] [place] [address] Director: [place] Chiara [facility] natriuretic [id number] 18:07:00 Test Item Value Reference Range Interpretation Comments BNP (test 17 pg/mL See_Comment BNP levels inc rease code = with age in the 74796-8) generalpopulati on with the highest mika ues seen inindividuals g reater than 75 years o f age.Reference: J. Am. Shahzad. Cardiol. 2002; 40:976-982. [Au tomated message] The sy stem which generated this result transmit philomena reference range : <=100. The reference r keegan was not used to int erpret this result as normal/abnormal . JOSE (test FASTING:YES code = JOSE) FASTING: YES RAC (test Performing code = RAC) Organization Information: Site ID: [facility] Name: [facility] Address: [address] [place] [address] Director: [facility] 18:07:00 Test Item Value Reference Interpretation Comments Range Testoster 409 ng/dL 250-1100 For additional information, one, please refer total, tohttps://educa tiolivia.Proximal Datadiagn lc/ms/ms Replise.hurleypalmerflatt/faq/ TotalTestostero (test neLCMSMS (This link is being code = provided for 2986-8) informational/e ducational purposes only.) (Note) This test was develo ped and its analytical performancechar acteristics have been deter mined by [employer]. It h as notbeen cleared or appr jose by the FDA. This assay has been validatedpursua nt to the CLIA regulations and is used for clinical purpos es. MDFmed [id number] [address],[address] [id number] Raulito Rousseau MD JOSE (test FASTING:YES code = FASTING: YES JOSE) RAC (test Performing code = Organization RAC) Information: Site ID: [id number] Name: [facility] Address: [address] [place] [address], [address] [place] [address] Director: Nick Rousseau MD EC 12 [id number] 16:28:35 Test Item Value Reference Range Interpretation Comments Ventricular rate (test 72 code = 253) Atrial rate (test code 72 = 255) UT interval (test code 174 = 266) QRSD interval (test 80 code = 260) QT interval (test code 394 = 264) QTC interval (test code 431 = 265) P axis 1 (test code = 50 267) QRS axis 1 (test code = 88 268) T wave axis (test code 19 = 270) EKG impression (test Normal sinus code = 273) rhythm-Normal ECG-In automated comparison with ECG of 21-FEB-2022 10:25,-No significant change was found-
[2023-06-07] MEDS ORDERED: IBUPROFEN 400 MG TAB ONE (15:57)
--- NOTE | 2023-06-07 16:36 | RAD REPORT ---
EXAM DESCRIPTION: RAD - Knee Right 3 View - 06/07/2023 4:05 pm CLINICAL HISTORY: PAIN COMPARISON: No comparisons TECHNIQUE: Right knee, 3 views. FINDINGS: No fracture, dislocation or periosteal reaction.No joint effusion seen. No joint space katt rowing. No soft tissue abnormality. Enthesopathy at the quadriceps tendon attachment to Clinical concerns for internal derangement or occult bony injury could be further assessed with MR im aging. IMPRESSION: No acute osseous abnormality.
--- NOTE | 2023-06-07 16:48 | EDPHYS ---
Physician Documentation [facility] Name: Carlos Johnson Age: 68 yrs Sex: Male : 1955 Arrival Date: 06/07/2023 Time: 13:59 Bed 10 Private MD: ED Physician Young Almanza HPI: 06/07 15:35 This 68 yrs old Male presents to ER via Ambulatory with complaints of Knee cp Injury. 15:35 The patient presents with an injury, pain, that is acute. The complaints affect the cp medial aspect of right knee. Context: resulted from misstep. patient reports knee almost giving out and causing him to fall. 15:35 Onset: The symptoms/episode began/occurred 3 day(s) ago. cp 15:35 Associated signs and symptoms: The patient has no apparent associated signs or symptoms.cp Historical: - Allergies: 14:46 No Known Allergies; jl7 - Home Meds: 14:46 amlodipine 2.5 mg tab 1 tab once daily [Active]; hydrochlorothiazide 12.5 mg Oral jl7 capsule [Active]; losartan oral [Active]; Spironolactone Oral [Active]; - PMHx: 14:46 Hypertension; jl7 - Immunization history:: Adult Immunizations unknown. - Social history:: Smoking status: Patient denies any tobacco usage or history of. ROS: 15:40 MS/extremity: Positive for pain, tenderness, of the medial aspect of right knee, cp Negative for decreased range of motion, deformity, paresthesias. 15:40 Constitutional: Negative for body aches, chills, fever, poor PO intake. cp 15:40 Respiratory: Negative for cough, shortness of breath, wheezing. 15:40 All other systems are negative. Exam: 15:45 Constitutional: The patient appears in no acute distress, alert, awake, non-toxic, well cp developed, well nourished, overweight 15:45 Neck: ROM/movement: is normal, is supple, without pain, no range of motions limitations.cp 15:45 Chest/axilla: Inspection: normal. 15:45 Cardiovascular: Rate: normal. 15:45 Respiratory: the patient does not display signs of respiratory distress, Respirations: normal, no use of accessory muscles, no retractions, labored breathing, is not present. 15:45 Back: pain, is absent, ROM is normal. 15:45 Musculoskeletal/extremity: Extremities: grossly normal except: noted in the medial aspect of right knee: pain, tenderness along MCL, ROM: limited passive range of motion due to pain, in the right knee, Perfusion: the extremity is normally perfused throughout, the left leg Sensation intact. Vital Signs: 14:39 BP 140 / 80; Pulse 77; Resp 17; Temp 97.9; Pulse Ox 97% ; Weight 86.18 kg; Height 5 ft. jl7 6 in. ; Pain 8/10; 14:39 Body Mass Index 30.67 (86.18 kg, 167.64 cm) jl7 14:39 Pain Scale: Adult jl7 MDM: 14:37 Patient medically screened. cp 16:00 Differential diagnosis: closed fracture, tendonitis, sprain. cp 16:46 Data reviewed: vital signs, nurses notes, radiologic studies, plain films. cp 16:46 I considered the following discharge prescriptions or medication management in the emergency department Medications were administered in the Emergency Department. See MAR. Counseling: I had a detailed discussion with the patient and/or guardian regarding the historical points, exam findings, and any diagnostic results supporting the discharge/admit diagnosis, radiology results, to return to the emergency department if symptoms worsen or persist or if there are any questions or concerns that arise at home. Response to treatment: the patient's symptoms have mildly improved after treatment, and as a result, I will discharge patient. 06/07 15:32 Order name: Knee Right 3 View XRAY; Complete Time: 16:44 cp 06/07 16:45 Interpretation: Report reviewed. cp Administered Medications: 15:50 Drug: Ibuprofen PO 800 mg Route: PO; ap3 17:12 Follow up: Response: No adverse reaction; Pain is decreased ap3 Disposition Summary: 06/07/23 16:47 Discharge Ordered Location: Home cp Problem: new cp Symptoms: have improved cp Condition: Stable cp Diagnosis - Pain in right knee cp Followup: cp - With: Gary Bone MD - When: 1 week - Reason: Recheck today's complaints Discharge Instructions: - Discharge Summary Sheet cp - Elastic Bandage and RICE Therapy cp - How to Use a Knee Brace cp - Acute Knee Pain, Adult cp Forms: - Medication Reconciliation Form cp - Thank You Letter cp - Antibiotic Education cp - Prescription Opioid Use cp - Patient Portal Instructions cp - Leadership Thank You Letter cp - Work release form rg4 Prescriptions: - Diclofenac Sodium 75 mg Oral Tablet Sustained Release - take 1 tablet by ORAL route 2 times per day; 30 tablet; Refills: 0, Product cp Selection Permitted Signatures: Dispatcher [employer] EDMS Young Levy PA PA cp Leal, Jahala RN RN jl7 Kait Piña RN RN ap3 Corrections: (The following items were deleted from the chart) 06/08 17:01 06/07 15:00 This 68 yrs old Male presents to ER via Ambulatory with complaints cp of Knee Injury. cp
--- NOTE | 2023-06-07 16:48 | ER ---
Nurse's Notes [facility] Name: Carlos Johnson Age: 68 yrs Sex: Male : 1955 Arrival Date: 06/07/2023 Time: 13:59 Bed 10 Private MD: Diagnosis: Pain in right knee Presentation: 06/07 14:39 Chief complaint: Patient states: Stepped wrong on Thursday and heard a pop, reports jl7 continued pain to right knee. Coronavirus screen: At this time, the client does not indicate any symptoms associated with coronavirus-19. Ebola Screen: No symptoms or risks identified at this time. Initial Sepsis Screen: Does the patient meet any 2 criteria? No. Patient's initial sepsis screen is negative. Does the patient have a suspected source of infection? No. Patient's initial sepsis screen is negative. Risk Assessment: Do you want to hurt yourself or someone else? Patient reports no desire to harm self or others. Onset of symptoms was June 05, 2023. 14:39 Method Of Arrival: Ambulatory 7 14:39 Acuity: MICHELLE 4 jl7 Triage Assessment: 17:11 Musculoskeletal: Reports pain in right knee. ap3 17:11 Injury Description: chronic pain. ap3 Historical: - Allergies: 14:46 No Known Allergies; jl7 - Home Meds: 14:46 amlodipine 2.5 mg tab 1 tab once daily [Active]; hydrochlorothiazide 12.5 mg Oral jl7 capsule [Active]; losartan oral [Active]; Spironolactone Oral [Active]; - PMHx: 14:46 Hypertension; jl7 - Immunization history:: Adult Immunizations unknown. - Social history:: Smoking status: Patient denies any tobacco usage or history of. Screenin:[address] [facility] ED Fall Risk Assessment (Adult) History of falling in the last 3 months, ap3 including since admission No falls in past 3 months (0 pts). Abuse screen: Denies threats or abuse. Nutritional screening: No deficits noted. Tuberculosis screening: No symptoms or risk factors identified. Assessment: 17:10 Reassessment: No changes from previously documented assessment. General: Appears in no ap3 apparent distress. Behavior is calm, cooperative, appropriate for age. Pain: Complains of pain in right knee. Neuro: Level of Consciousness is awake, alert, obeys commands, Oriented to person, place, time, situation. Vital Signs: 14:39 BP 140 / 80; Pulse 77; Resp 17; Temp 97.9; Pulse Ox 97% ; Weight 86.18 kg; Height 5 ft. jl7 6 in. ; Pain 8/10; 14:39 Body Mass Index 30.67 (86.18 kg, 167.64 cm) jl7 14:39 Pain Scale: Adult [facility] ED Course: 14:00 Patient arrived in ED. rg4 14:21 Young Levy PA is PHCP. cp 14:21 Young Almanza MD is Attending Physician. cp 14:46 Triage completed. jl7 14:46 Arm band placed on right wrist. jl7 15:50 Kait Piña, VIRGILIO is Primary Nurse. ap3 16:07 Knee Right 3 View XRAY In Process Unspecified. EDMS 16:45 Gary Bone MD is Referral Physician. cp 17:11 Patient has correct armband on for positive identification. Call light in reach. Side ap3 rails up X 1. 17:11 No provider procedures requiring assistance completed. Patient did not have IV access ap3 during this emergency room visit. 17:12 Provided Education on: discharge education. ap3 Administered Medications: 15:50 Drug: Ibuprofen PO 800 mg Route: PO; ap3 17:12 Follow up: Response: No adverse reaction; Pain is decreased ap3 Medication: 17:11 VIS not applicable for this client. ap3 Outcome: 16:47 Discharge ordered by . cp 17:11 Discharged to home ambulatory, with family. ap3 17:11 Condition: good 17:11 Discharge instructions given to patient, family, Instructed on discharge instructions, follow up and referral plans. medication usage, Demonstrated understanding of instructions, follow-up care, medications, Prescriptions given X 1. 17:12 Patient left the ED. ap3 Signatures: Dispatcher [employer] EDIN Young Levy PA PA cp Garcia, Rubi rg4 Jannette Timmons RN RN jl7 Kait Piña RN RN ap3
[2023-06-07 17:53] VITALS: BP 140/80; TEMP 97.9; O2SAT 97
== END 2023-06-07 17:12 | disposition home or self-care (01) ==
LOC: ER 13:59
DX: M25.561 Pain in right knee (principal)
CPT/HCPCS: 99283